=== PATIENT | male | born 1975 | race Caucasian/White ===

== ENCOUNTER 2017-08-21 20:58 | Emergency (ER) | payer OTHER ==
[~2017-08-21] VITALS: Ht 180.3 cm; Wt 83.9 kg
[2017-08-21] MEDS ORDERED: ADDERALL 10 MG10 MG PO (21:34)
[2017-08-21 22:24] VITALS: BP 127/79
== END 2017-08-21 22:26 | disposition home or self-care (01) ==
LOC: ER 20:58
DX: S51.812A Laceration without foreign body of left forearm, initial encounter (principal); W25.XXXA Contact with sharp glass, initial encounter; Y93.89 Activity, other specified; Y92.89 Other specified places as the place of occurrence of the external cause; Y99.8 Other external cause status